=== PATIENT | male | born 1945 | race Caucasian/White ===

== ENCOUNTER 2018-02-14 10:23 | Outpatient (CLI) | payer MEDICARE, BC ==
--- NOTE | 2018-02-14 13:13 | XRAY Report ---
Procedure Date: 02/14/2018 Accession Number: [id number] / [id number] Procedure: XR - Chest 3 View X-Ray CPT Code: 25800 FULL RESULT: EXAM: Chest 3 View X-Ray DATE: 02/14/2018 12:21 PM CLINICAL HISTORY: CHEST PAIN TECHNIQUE: AP, lateral, apical lordotic views COMPARISON: 02/05/2016 FINDINGS: The heart and great vessels are unremarkable. The lungs are clear. No effusion or pneumothorax is present. IMPRESSION: Normal 3 view chest.
--- NOTE | 2018-02-14 13:13 | XRAY Report ---
Procedure Date: 02/14/2018 Accession Number: [id number] / [id number] Procedure: XR - Ribs 2 View RT CPT Code: FULL RESULT: EXAM: Ribs 2 View RT DATE: 02/14/2018 12:19 PM CLINICAL HISTORY: CHEST PAIN, FLANK PAIN COMPARISON: Chest x-ray of the same day TECHNIQUE: 2 views. FINDINGS: Bones: Normal. No fracture or bone lesion. Lungs: No focal opacities evident. No pneumothorax or pleural effusions. Mediastinum: Heart and cardiomediastinal contours are unremarkable. Other: None. IMPRESSION: Normal rib radiography. RADIA
== END 2018-02-14 10:24 | disposition home or self-care (01) ==
LOC: DI 10:23
PROVIDERS: ATTEND Internal Medicine
DX: R07.9 Chest pain, unspecified (principal); R10.9 Unspecified abdominal pain
CPT/HCPCS: 71047

== ENCOUNTER 2019-05-02 09:39 | Outpatient (CLI) | payer MEDICARE, BC ==
--- NOTE | 2019-05-02 12:07 | Ultrasound Report ---
Reason: THYROID CYST Procedure Date: 05/02/2019 Accession Number: [id number] / [id number] Procedure: US - Head or Neck Soft Tissue CPT Code: FULL RESULT: EXAM: THYROID ULTRASOUND EXAM DATE: 05/02/2019 10:11 AM. CLINICAL HISTORY: THYROID CYST. COMPARISON: US HEAD AND NECK SOFT TISSUE 09/29/2016 1:48 PM. TECHNIQUE: Real time sonographic imaging of the thyroid was performed by the respiratory technician. Multiple sales representative education courses static images were saved for review. FINDINGS: THYROID GLAND: Right Lobe: 4.6 x 1.1 x 1.3 cm, volume 3.4 cc. Normal background echotexture. Right Lobe Nodules: 0.6 x 0.4 x 0.4 cm spongiform midlobe nodule unchanged. Left Lobe: 4.3 x 1 x 1.3 cm, volume 2.9 cc. Normal background echotexture. Left Lobe Nodules: Previously seen superior cysts not definitely appreciated today. Isthmus: 0.4 cm AP. Isthmic Nodules: 2 mm cyst left isthmus stable LYMPH NODES: No pathologic adenopathy demonstrated in the central or lateral compartment. OTHER: None. IMPRESSION: No suspicious thyroid nodules are seen. No nodules meet criteria for FNA. Small gland with one 6 mm spongiform right nodule and a 2 mm left isthmic cyst persist. Management recommendations are based on 2015 [place] [employer] Management Guidelines for Adult Patients with Thyroid Nodules and Differentiated Thyroid Cancer. RADIA
== END 2019-05-02 09:40 | disposition home or self-care (01) ==
LOC: DI 09:39
PROVIDERS: ATTEND Internal Medicine
DX: E04.1 Nontoxic single thyroid nodule (principal)
CPT/HCPCS: 76536

== ENCOUNTER 2020-06-17 16:39 | Outpatient (CLI) | payer MEDICARE, BC | END 2020-06-17 16:40 | disposition home or self-care (01) | LOC: COV 16:39 | PROVIDERS: ATTEND Family Medicine | DX: R05 Cough (principal); R06.02 Shortness of breath; M79.10 Myalgia, unspecified site; R53.83 Other fatigue; R09.81 Nasal congestion; Z20.828 Contact with and (suspected) exposure to other viral communicable diseases ==

== ENCOUNTER 2021-09-22 10:21 | Outpatient (CLI) | payer MEDICARE, BC | END 2021-09-22 10:22 | disposition home or self-care (01) | LOC: LAB.S 10:21 | PROVIDERS: ATTEND Family Medicine | DX: C61 Malignant neoplasm of prostate (principal) | CPT/HCPCS: 36415; 84153 ==

== ENCOUNTER 2021-12-22 10:00 | Outpatient (CLI) | payer MEDICARE, BC | END 2021-12-22 10:01 | disposition home or self-care (01) | LOC: LAB.S 10:00 | PROVIDERS: ATTEND Nurse Practitioner Family | DX: C61 Malignant neoplasm of prostate (principal) | CPT/HCPCS: 36415; 84153 ==

== ENCOUNTER 2022-12-06 11:20 | Outpatient (CLI) | payer MEDICARE, BC | END 2022-12-06 11:21 | disposition home or self-care (01) | LOC: LAB.S 11:20 | PROVIDERS: ATTEND Radiology Radiation Oncology | DX: C61 Malignant neoplasm of prostate (principal) | CPT/HCPCS: 36415; 84153 ==

== ENCOUNTER 2023-02-05 13:22 | Outpatient (CLI) | payer MEDICARE, BC | END 2023-02-05 13:23 | disposition home or self-care (01) | LOC: RT 13:22 | PROVIDERS: ATTEND Internal Medicine Pulmonary Disease | DX: R06.09 Other forms of dyspnea (principal) | CPT/HCPCS: 94060; 94727; 94729 ==

== ENCOUNTER 2023-05-15 13:51 | Outpatient (CLI) | payer MEDICARE, BC ==
--- NOTE | 2023-05-15 16:08 | XRAY Report ---
PROCEDURE: Chest 2 View X-Ray INDICATIONS: FOCAL PNEUMONIA TECHNIQUE: 2 views of the chest were acquired. COMPARISON: None. FINDINGS: Surgical changes and devices: None. Lungs and pleura: No pleural effusions or pneumothorax. Lungs are clear. Mediastinum: Mediastinal contours appear normal. Heart size is normal. Bones and chest wall: No suspicious bony lesions. Overlying soft tissues appear unremarkable. IMPRESSION: No acute cardiopulmonary process. Reviewed by: Riya Martinez MD, PhD on 05/15/2023 4:07 PM PDT Approved by: Riya Martinez MD, PhD on 05/15/2023 4:07 PM PDT Station ID: [id number]
== END 2023-05-15 23:59 | disposition home or self-care (01) ==
LOC: DI.S 13:51
PROVIDERS: ATTEND Emergency Medicine
DX: J15.9 Unspecified bacterial pneumonia (principal)

== ENCOUNTER 2023-06-15 10:32 | Outpatient (CLI) | payer MEDICARE, BC ==
[2023-06-15 15:16] LABS: BASOPHILS % (AUTO) 0.7 %; HGB - HEMOGLOBIN 11.9 g/dL (14.0-18.0); LYMPHOCYTES % (AUTO) 16.9 %; MEAN CORPUSCULAR HEMOGLOBIN 32.5 pg (27.0-31.0); MEAN CORPUSCULAR HGB CONC 33.1 g/dL (32.0-36.0); MEAN CORPUSCULAR VOLUME 98.4 fL (80.0-94.0); MEAN PLATELET VOLUME 8.6 fL (7.4-11.4); MONOCYTES # (AUTO) 0.6 10^3/uL (0.0-1.0); MONOCYTES % (AUTO) 9.4 %; NEUTROPHILS # (AUTO) 4.5 10^3/uL (1.5-6.6); NEUTROPHILS % (AUTO) 72.8 %; PLT - PLATELET COUNT 220 10^3/uL (130-450); RED BLOOD COUNT 3.66 10^6/uL (4.70-6.10); RED CELL DISTRIBUTION WIDTH 13.1 % (12.0-15.0); WHITE BLOOD COUNT 6.2 x10^3/uL (4.8-10.8)
[2023-06-15 15:45] LABS: FERRITIN 18.3 ng/mL (23.9-336.2)
== END 2023-06-15 10:33 | disposition home or self-care (01) ==
LOC: LAB.S 10:32
PROVIDERS: ATTEND Family Medicine
DX: D64.9 Anemia, unspecified (principal)
CPT/HCPCS: 36415; 82607; 82728; 82746; 83540; 84466; 85025

== ENCOUNTER 2023-11-02 05:46 | Outpatient (CLI) | payer MEDICARE, BC | END 2023-11-02 23:59 | disposition critical access hospital (66) | LOC: EMS 05:46 | DX: R42 Dizziness and giddiness (principal); R11.0 Nausea; R07.89 Other chest pain; R10.812 Left upper quadrant abdominal tenderness; S30.1XXA Contusion of abdominal wall, initial encounter; S00.31XA Abrasion of nose, initial encounter; S00.81XA Abrasion of other part of head, initial encounter; S70.01XA Contusion of right hip, initial encounter; S40.021A Contusion of right upper arm, initial encounter; W18.39XA Other fall on same level, initial encounter | CPT/HCPCS: A0425; A0427 ==

== ENCOUNTER 2023-11-02 06:17 | Inpatient (IN) | payer MEDICARE, BC ==
[2023-11-02] MEDS ORDERED: iohexoL-300 100 ML VIAL ONE (06:35)
[2023-11-02 06:37] LABS: BASOPHILS % (AUTO) 0.4 %; HCT - HEMATOCRIT 31.7 % (42.0-52.0); HGB - HEMOGLOBIN 11.6 g/dL (14.0-18.0); LYMPHOCYTES # (AUTO) 0.4 10^3/uL (1.5-3.5); LYMPHOCYTES % (AUTO) 8.2 %; MEAN CORPUSCULAR HEMOGLOBIN 33.5 pg (27.0-31.0); MEAN CORPUSCULAR HGB CONC 36.6 g/dL (32.0-36.0); MEAN CORPUSCULAR VOLUME 91.6 fL (80.0-94.0); MEAN PLATELET VOLUME 8.1 fL (7.4-11.4); MONOCYTES # (AUTO) 0.7 10^3/uL (0.0-1.0); MONOCYTES % (AUTO) 12.1 %; NEUTROPHILS # (AUTO) 4.2 10^3/uL (1.5-6.6); NEUTROPHILS % (AUTO) 78.9 %; PLT - PLATELET COUNT 178 10^3/uL (130-450); RED BLOOD COUNT 3.46 10^6/uL (4.70-6.10); RED CELL DISTRIBUTION WIDTH 12.7 % (12.0-15.0); WHITE BLOOD COUNT 5.4 x10^3/uL (4.8-10.8)
[2023-11-02] MEDS: MECLIZINE 12.5 MG TABLET PO STA (06:43)
[2023-11-02] MEDS: TETANUS/DIPHTHERIA/PERTUSSIS 0.5 ML SYRINGE IM ONE (06:44)
[2023-11-02] MEDS: SODIUM CHLORIDE 0.9% 1,000 ML IV STA (06:46)
[2023-11-02 06:50] LABS: ALBUMIN 3.8 g/dL (3.2-5.5); ALBUMIN/GLOBULIN RATIO 1.5 (1.0-2.2); ALKALINE PHOSPHATASE 92 IU/L (42-121); ALT ALANINE AMINOTRANSFERASE 15 IU/L (10-60); AST ASPARTATE AMINOTRANSFERASE 24 IU/L (10-42); BILIRUBIN,TOTAL 0.7 mg/dL (0.2-1.0); BUN - BLOOD UREA NITROGEN 17 mg/dL (6-20); CARBON DIOXIDE - CO2 26 mmol/L (21-32); CHLORIDE 90 mmol/L (101-111); CREATININE 0.8 mg/dL (0.6-1.3); GFR - MDRD 94 (>89); GLUCOSE 113 mg/dL (74-104); POTASSIUM 3.6 mmol/L (3.5-4.5); SODIUM 122 mmol/L (135-145); TOTAL PROTEIN 6.4 g/dL (6.4-8.9)
--- NOTE | 2023-11-02 06:52 | ED Physician Documentation ---
History of Present Illness - Stated complaint Stated Complaint: N/V/DIZZY - Chief complaint Chief Complaint: General - History obtained from History obtained from: Patient - Additonal information Additional information: 78yM presents bibems with nausea, severe headache today and vertiginous sensation X 4 days with fall yesterday. +HT and facial injury, no LOC. denies blood thinners. also with large ecchymosis and pain to R lower chest/upper abdomen. patient states he has been vomiting yellowish substance. denies fever, neck pain, back pain, diarrhea. patient has had issues with vertigo in the past and normally takes ear drops or ativan for it but they haven't been working. EMS provided 4mg IV zofran en route with improvement in nausea. PD PAST MEDICAL HISTORY - Past Medical History Cardiovascular: High cholesterol, Coronary artery disease Endocrine/Autoimmune: HyPOthyroidism : Benign prostate hypertrophy, Indwelling catheter HEENT: Chronic hearing loss Psych: Depression Musculoskeletal: Osteoarthritis - Past Surgical History Past Surgical History: Yes General: Colonoscopy, EGD Ortho: Hip replacement - Present Medications Home Medications: Ambulatory Orders Medication Instructions Recorded Confirmed Aspirin 325 mg PO DAILY 02/05/16 02/06/16 Atorvastatin [Lipitor] 10 mg PO QPM 02/05/16 02/06/16 Docusate Sodium 250Mg Capsule 250 mg PO BID 02/05/16 02/06/16 [Colace 250Mg Capsule] Finasteride [Proscar] 5 mg PO DAILY 02/05/16 02/06/16 LORazepam [Ativan] 0.5 mg PO BID PRN 02/05/16 02/06/16 Levothyroxine [Synthroid] 100 mcg PO DAILY 02/05/16 02/06/16 Mirtazapine 45 mg PO QPM 02/05/16 02/06/16 Omeprazole [PriLOSEC] 20 mg PO BID 02/05/16 02/06/16 Sertraline [Zoloft] 25 mg PO DAILY 02/05/16 02/06/16 Sulfamethoxazole/Trimethoprim 1 tab PO BID 02/05/16 02/06/16 [Bactrim 400-80 mg Tablet] oxyCODONE [Roxicodone] 5 - 10 mg PO QID PRN 02/05/16 02/06/16 - Allergies Allergies/Adverse Reactions: Allergies Allergy/AdvReac Type Severity Reaction Status Date / Time No Known Drug Allergies Allergy Verified 11/02/23 06:29 - Social History Does the pt smoke?: No Smoking Status: Never smoker Does the pt drink ETOH?: No Does the pt have substance abuse?: Yes PD ED PE NORMAL - Vitals Vital signs reviewed: Yes - General General: Alert and oriented X 3, No acute distress, Well developed/nourished - HEENT HEENT: Atraumatic, PERRL, EOMI, Moist mucous membranes, Pharynx benign, Other (abrasions to bridge of nose and upper face. no nasal septal hematoma) - Neck Neck: Supple, no meningeal sign, No bony TTP - Cardiac Cardiac: RRR - Respiratory Respiratory: No respiratory distress, Clear bilaterally - Abdomen Abdomen: Non tender, Non distended - Derm Derm: Other (large ecchymosis to R flank and R lower lateral chest area) - Extremities Extremities: No deformity - Neuro Neuro: Alert and oriented X 3, window glazier helper 2-12 intact, No motor deficit, No sensory deficit, Normal speech Eye Opening: Spontaneous Motor: Obeys Commands Verbal: Oriented GCS Score: 15 Results - Vitals Vitals: Vital Signs - 24 hr 11/02/23 06:26 Temperature 36.2 C L Heart Rate 73 Respiratory 18 Rate Blood Pressure 146/78 H O2 Saturation 95 Oxygen O2 Source Room air PD Medical Decision Making - ED course ED course: 78yM p/w n/v, LOWRY, and vertigo with symptom onset 4 days ago. possible this is ce ntral versus peripheral in origin therefore CT noncontrast of head and CTA head/neck ordered. IV ativan was provided for vertigo. patient declined meclizine. oral tylenol provided for headache. CT chest/a/p ordered to evaluate for rib fractures or solid organ injury from his fall yesterday in the setting of R flank and R lower lateral chest wall ecchymosis. cbc, abdominal panel, ivf, also ordered. plan to endorse to incoming daytime ED MD at 7am shift change awaiting these results and reevaluation. Departure - Departure Clinical Impression: Vertigo, Headache, Nausea and vomiting, Fall
[2023-11-02 06:55] LABS: LIPASE < 10 U/L (11-82)
[2023-11-02] MEDS: LORazepam 2 MG/ML VIAL IVP STA (06:57)
[2023-11-02] MEDS: ACETAMINOPHEN 325 MG TABLET PO STA (06:57)
[2023-11-02 07:48] LABS: BILIRUBIN,URINE NEGATIVE (NEGATIVE); GLUCOSE, URINE (UA) NEGATIVE (NEGATIVE); KETONES,URINE (UA) NEGATIVE (NEGATIVE); LEUKOCYTE ESTERASE, URINE NEGATIVE (NEGATIVE); NITRITE,URINE NEGATIVE (NEGATIVE); OCCULT BLOOD,URINE NEGATIVE (NEGATIVE); PH,URINE 6.5 PH (5.0-7.5); PROTEIN,URINE NEGATIVE (NEGATIVE); UROBILINOGEN,URINE 0.2 (NORMAL) E.U./dL (NORMAL)
[2023-11-02 07:49] LABS: CLARITY,URINE CLEAR (CLEAR)
--- NOTE | 2023-11-02 08:35 | CT Report ---
PROCEDURE: Abdomen/Pelvis W INDICATIONS: Abdominal trauma, blunt CONTRAST: 100ml omni 300 TECHNIQUE: After the administration of intravenous contrast, a CT scan of the abdomen and pelvis was performed. Images were recorded and evaluated at appropriate window settings. Reformats: coronal and sagittal. F or radiation dose reduction, the following was used: automated exposure control, adjustment of mA and /or kV according to patient size. COMPARISON: None. FINDINGS: Image quality: Diagnostic. Lower chest: Large hiatal hernia. Liver: No solid mass. Gallbladder and biliary tree: No radiopaque stones or wall thickening. No biliary dilation. Spleen: No splenomegaly. Pancreas: No pancreatic ductal dilation. Adrenals: No adrenal nodule. Kidneys and ureters: No hydronephrosis. No renal cystic lesion which requires follow up. No solid mas s. Stomach, bowel and peritoneum: No bowel distension. No pathologic free fluid. Diverticulosis without evidence of diverticulitis. Lymph nodes: No central or retroperitoneal adenopathy. Vessels: No infrarenal aortic aneurysm. PELVIS Reproductive organs: Prostate fiducial markers. Bladder: No abnormal wall thickening, accounting for underdistention. Pelvic lymph nodes: No pelvic adenopathy by size criteria. Bones: Minimally displaced right posterior 10th and 11th rib fractures. Right total hip arthroplasty. Other: No significant ventral or inguinal hernia. IMPRESSION: Minimally displaced right posterior 10th and 11th rib fractures. No pneumothorax or solid organ injur y. Other chronic findings as above. Reviewed by: Adin Casetllano MD on 11/02/2023 8:33 AM PDT Approved by: Adin Castellano MD on 11/02/2023 8:33 AM PDT Station ID: [id number]
--- NOTE | 2023-11-02 08:38 | CT Report ---
PROCEDURE: Chest W INDICATIONS: Chest trauma, blunt, low energy CONTRAST: 100ml omni 300 TECHNIQUE: After the administration of intravenous contrast, a CT scan of the chest was performed. Images were recorded and evaluated at appropriate window settings. Reformats: axial MIP of the chest, coronal and sagittal. For radiation dose reduction, the following was used: automated exposure control, adjustme nt of mA and/or kV according to patient size. COMPARISON: None. FINDINGS: Image quality: Diagnostic. Chest wall and lower neck: No thyroid nodule which requires sonographic follow up. No axillary or sup raclavicular adenopathy by size. Lungs and pleura: No consolidation. No pleural effusions. No pneumothorax. No suspicious pulmonary n odules which require follow up. Mediastinum: Heart size is normal. No pericardial effusion. No large vessel abnormality. No mediastin al adenopathy by size criteria. Gastric pull-through with esophagectomy. Bones: Mildly displaced right posterior 10th and 11th rib fractures. Questionable nondisplaced right posterior lateral ninth rib fracture. Upper Abdomen: Unremarkable. IMPRESSION: Mildly displaced right posterior 10th and 11th rib fractures. Questionable nondisplaced right posteri or lateral ninth rib fracture. No pneumothorax or effusion. Reviewed by: Adin Castellano MD on 11/02/2023 8:37 AM PDT Approved by: Adin Castellano MD on 11/02/2023 8:37 AM PDT Station ID: [id number]
--- NOTE | 2023-11-02 08:42 | CT Report ---
PROCEDURE: Head WO INDICATIONS: Head trauma, mod-severe TECHNIQUE: Noncontrast 4.5 mm thick angled axial sections acquired from the foramen magnum to the vertex. For r adiation dose reduction, the following was used: automated exposure control, adjustment of mA and/or kV according to patient size. COMPARISON: None. FINDINGS: Image quality: Excellent. CSF spaces: Basal cisterns are patent. No extra-axial fluid collections. Ventricles are normal in size and shape. Brain: No midline shift. No intracranial masses or hemorrhage. Hansen-white matter interface is norm al. Leukoaraiosis, commonly caused by chronic small vessel ischemic disease. Age-related volume loss . Skull and face: Calvarium and visualized facial bones are intact, without suspicious lesions. Sinuses: Visualized sinuses and mastoids are clear. IMPRESSION: No acute intracranial pathology. Reviewed by: Adin Castellano MD on 11/02/2023 8:41 AM PDT Approved by: Adin Castellano MD on 11/02/2023 8:41 AM PDT Station ID: [id number]
--- NOTE | 2023-11-02 08:43 | CT Report ---
PROCEDURE: Maxillofacial WO INDICATIONS: facial injury s/p fall TECHNIQUE: Noncontrast 1.5 mm thick axial images acquired from the mandible through the frontal sinuses, with co bc and sagittal reformatting. For radiation dose reduction, the following was used: automated ex posure control, adjustment of mA and/or kV according to patient size. COMPARISON: None. FINDINGS: Image quality: Excellent. Bones and teeth: Orbital hopkins are intact. Sinus hopkins show no fracture or deformity. Nasal bones and septum are intact. Visualized portions of the mandible demonstrate no fractures or subluxation. Zygomatic arches are intact. Pterygoid plates are intact. Visualized portions of the skull base an d auditory canals are intact. Sinuses: Paranasal sinuses are aerated, without fluid levels, mucosal thickening, or mucoceles. Mas toid air cells are aerated. Soft tissues: No edema, masses, or fluid collections. No enlarged lymph nodes. No soft tissue lace rations or debris. Vascular: Visualized vascular structures appear normal in the absence of contrast. Bony vascular fo ramina and canals are intact. IMPRESSION: No displaced fracture or air-fluid level to suggest hematoma. Reviewed by: Adin Castellano MD on 11/02/2023 8:42 AM PDT Approved by: Adin Castellano MD on 11/02/2023 8:42 AM PDT Station ID: [id number]
[2023-11-02] MEDS: ONDANSETRON 4 MG/2 ML VIAL IVP STA (08:44)
[2023-11-02] MEDS: MORPHINE 2 MG/ML CARPUJECT IVP STA (08:46)
--- NOTE | 2023-11-02 08:46 | CT Report ---
PROCEDURE: Angio Head/Neck INDICATIONS: vertigo TECHNIQUE: After the administration of intravenous contrast, 1 mm thick sections acquired from the aortic arch t hrough the [place]. 3-dimensional kmyzzzm-snbccknvu-erkalnynmp (MIP) and/or volume renderin g reformats were acquired of the central intracranial vasculature and neck separately. For radiation dose reduction, the following was used: automated exposure control, adjustment of mA and/or kV acco rding to patient size. CONTRAST: 100ml omni 300 COMPARISON: None. FINDINGS: Image quality: Diagnostic. HEAD CT: CSF Spaces: Basal cisterns are patent. No extra-axial fluid collections. Ventricles are normal in size and shape. Brain: No significant abnormality is seen for scanning technique. Skull and face: Calvarium and visualized facial bones appear intact, without suspicious lesions. Sinuses: Visualized sinuses and mastoids are clear. HEAD CT ANGIOGRAPHY: Anterior circulation: Intracranial internal carotid arteries are normal in size and flow. The flow within the paired anterior cerebral arteries is normal and symmetric. The flow within the middle cer ebral arteries is normal and symmetric. The anterior communicating artery is seen. No aneurysms are seen. Posterior circulation: Visualized portions of the vertebral arteries demonstrate normal caliber, and join to form a normal appearing basilar artery. Flow within the posterior cerebral arteries is norm al and symmetric. No aneurysms are seen. NECK CT ANGIOGRAPHY: Carotid system: The great vessels demonstrate a conventional anatomy as they arise from the aortic a rch. The origins of the common carotid arteries appear patent. The common carotid arteries demonstr ate normal caliber and courses. The bifurcation regions are both widely patent. The internal caroti d arteries demonstrate normal calibers and courses. Posterior circulation: The origins of the vertebral arteries both appear widely patent. The more phillip perior extracranial portions of both vertebral arteries also demonstrate normal courses and calibers. They join to form a normal appearing basilar artery. Soft tissues: Visualized neck soft tissues demonstrate no suspicious abnormalities. Bones: No suspicious bony lesions. Visualized cervical spine appears normally aligned. IMPRESSION: No significant intracranial arterial abnormality is seen. No significant abnormality is seen within the arteries of the neck. The estimate of stenosis included in the report of the imaging study was calculated using the NASCET method Reviewed by: Adin Castellano MD on 11/02/2023 8:44 AM PDT Approved by: Adin Castellano MD on 11/02/2023 8:44 AM PDT Station ID: [id number]
--- NOTE | 2023-11-02 08:58 | ED Physician Documentation ---
ED Addendum - Addendum Addendum: 11/02/23 Patient care assumed at shift change from Dr. Cramer. Patient with vertigo had an episode yesterday causing a fall. Sustained multiple abrasions to the face as well as contusion to the right lower chest wall and flank. Not on a blood thinner. On review of imaging patient has rib fractures of right posterior 10th and 11th ribs with possible involvement of the right ninth rib. On review of his labs significant for sodium of 122. Patient states he has been drinking mo re water in the last 3 weeks due to to constipation and because of history of vertigo was told to avoid salt. He is not on any diuretics. Does not take a blood thinner. Prior labs are from 2016 but indicate normal sodium levels at that time. 0856 -Discussed with admitting hospitalist, Dr. Swanson who will admit the patient for further management of hyponatremia and rib fractures. He has also requested surgery consultation for help in managing the rib fractures. I did also speak with Dr. Hdez who will consult on the patient. Departure - Departure Disposition: 66 [facility] DC/Xfer Clinical Impression: Vertigo, Headache, Nausea and vomiting, Hyponatremia Fall Qualifiers: Encounter type: initial encounter Qualified Code(s): W19.XXXA - Unspecified fall, initial encounter Ribs, multiple fractures Qualifiers: Encounter type: initial encounter Fracture type: closed Laterality: right Qualified Code(s): S22.41XA - Multiple fractures of ribs, right side, initial encounter for closed fracture Condition: Good Forms: PCP List
[2023-11-02] MEDS ORDERED: ONDANSETRON ODT 4 MG TABLET TL PRN (09:03)
[2023-11-02] MEDS ORDERED: IBUPROFEN 600 MG TABLET PO PRN (09:03)
[2023-11-02] MEDS ORDERED: ACETAMINOPHEN 325 MG TABLET PO PRN (09:03)
[2023-11-02] MEDS ORDERED: oxyCODONE 5 MG TABLET PO PRN (09:03)
[2023-11-02] MEDS ORDERED: ONDANSETRON 4 MG/2 ML VIAL IVP PRN (09:03)
[2023-11-02] MEDS ORDERED: SODIUM CHLORIDE FLUSH 0.9% 10 ML SYRINGE IVP PRN (09:03)
[2023-11-02] MEDS ORDERED: HYDROmorphone 0.5 MG/0.5 ML SYRINGE IVP PRN (09:03)
[2023-11-02] MEDS: LIDOCAINE PATCH 5% TOP STA (09:10)
[2023-11-02] MEDS: SODIUM CHLORIDE 0.9% 1,000 ML IV SCH (09:18)
--- NOTE | 2023-11-02 09:29 | CONSULTATION NOTE ---
Surgery Consult - Admit Date Hospital Admission Date: 11/02/23 - Home Meds/Allergies Home Medications: Patient History Medication Instructions Recorded Confirmed Aspirin 325 mg PO DAILY 02/05/16 02/06/16 Atorvastatin [Lipitor] 10 mg PO QPM 02/05/16 02/06/16 Docusate Sodium 250Mg Capsule 250 mg PO BID 02/05/16 02/06/16 [Colace 250Mg Capsule] Finasteride [Proscar] 5 mg PO DAILY 02/05/16 02/06/16 LORazepam [Ativan] 0.5 mg PO BID PRN 02/05/16 02/06/16 Levothyroxine [Synthroid] 100 mcg PO DAILY 02/05/16 02/06/16 Mirtazapine 45 mg PO QPM 02/05/16 02/06/16 Omeprazole [PriLOSEC] 20 mg PO BID 02/05/16 02/06/16 Sertraline [Zoloft] 25 mg PO DAILY 02/05/16 02/06/16 Sulfamethoxazole/Trimethoprim 1 tab PO BID 02/05/16 02/06/16 [Bactrim 400-80 mg Tablet] oxyCODONE [Roxicodone] 5 - 10 mg PO QID PRN 02/05/16 02/06/16 Allergies/Adverse Reactions: Allergies Allergy/AdvReac Type Severity Reaction Status Date / Time No Known Drug Allergies Allergy Verified 11/02/23 06:29 - Vital Signs Vital Signs: Last Vital Signs Temp 97.2 F L 11/02/23 06:26 Pulse 69 11/02/23 09:22 Resp 19 11/02/23 09:22 BP 170/98 H 11/02/23 09:22 Pulse Ox 97 11/02/23 09:22 O2 Flow Rate Intake & Output: Intake & Output 10/30/23 10/31/23 11/01/23 11/02/23 23:59 23:59 23:59 23:59 Intake Total 1000 Balance 1000 - Lab Results Result Diagrams: 11/02/23 06:32 11/02/23 06:32 - Consultation Note Consultation Note: General Surgery Consultation Note - (Rib Fracture Protocol) Assessment: 1) Non-displaced fractures right ribs 9,10,11 without hemopneumothorax or pulmonary contusion Recommendation: 1) Lidocaine patch right chest wall. Change q 12 hrs 2) Oral scheduled Acetaminophen, Ibuprofen and PPI; PRN Oxycodone 3) IV Dilaudid as needed 4) IS 5-6 x per hour 5) Supplemental oxygen as needed 6) Dangle at bedside/ambulate 4-6 x a day. May ambulate with assistance once vertigo has resolved 7) Consider epidural catheter (consult anesthesia) if above analgesic measures fail to provide enough relief for adequate pulmonary hygiene 8) Colace; MOM/Miralax as needed for constipation 9) Surgery will follow <><><><><> Reason for Consultation I am asked to see Huey by Dr. Swanson for evaluation and management of right posterior rib fractures HPI Huey is a 78 year old male who has Meniere's disease. Upon entering his home yesterday afternoon, he became dizzy and fell to the ground striking his right chest on a plant pot. He had immediate pain in the area and this kept him awake all evening.. He suffered with vertigo and emesis during the evening and came to the ED today for evaluation. He was found to have significant hyponatremia a nd on image evaluation, the right posterior 9th, 10th, and 11th ribs were seen to be fractured but non-displaced. He was started on IV morphine for his rib pain and this has resolved the discomfort. He has no SOB. This patient will be admitted to the Adult Medical Hospitalist Service for treatment of his hyponatremia and the General Surgery Service was asked to assist in his evaluation and management per Hospital Acute Rib Fracture Policy. Past Medical History Meniere's disease Esophageal cancer, s/p esophagectomy Hypothyroidism Hypercholesterolemia Depression (related to esophageal surgery) Constipation Past Surgical History Esophagectomy 2007 Mesh repair of abdominal wall hernia Inguinal hernia repair Fibular fracture repair Right hip surgery Social History [place] alone [place] the [place]; Does not smoke cigarettes; Used to drink alcohol ROS Pertinent positives Restless legs Vertigo Right chest discomfort All other reviewed systems negative Physical Examination VSS; Afebrile BMI: 23 GENERAL APPEARANCE: Normal development, normal body habitus, normal grooming PSYCHIATRIC: AAO; Pleasant, comfortable, cooperative, in NAD EYES: Pupils constricted and equal, round and reactive to light, sclera anicteric EARS, NOSE, MOUTH, THROAT: Hearing normal, Oral mucous membranes moist and without lesions; Teeth in good repair NECK: No crepitus, lymphadenopathy, or thyromegaly LUNGS: Clear to auscultation without wheezing; No use of accessory muscles to breathe; CHEST WALL: Minimal tenderness right posterolateral chest wall; no ecchymosis; no flail or rib movement HEART: NSR ABD: Soft, non-tender, midline surgical scar without herniation SKIN: Anicteric; No rashes; Several abrasions about right face and scalp Labs See above Imaging CT Chest/Abd - read as normal except for non-displaced right 9,10,11 rib fractures; No hemopneumothorax CTA Head - normal All images were personally reviewed by me for this encounter - JOSH. Jose Maria Hdez MD, [facility] General Surgery [phone]
[2023-11-02] MEDS ORDERED: polyethylene glycoL 3350 17 GM PACKET PO PRN (10:30)
[2023-11-02] MEDS: iohexoL-300 100 ML VIAL IVP ONE (10:58)
--- NOTE | 2023-11-02 13:33 | PHARMACY PROGRESS NOTE ---
- Best Possible Medication History Admit Date and Time: 11/02/23 0903 Processed by: Pharmacy Medications reviewed in ED?: No Medication History completed: Yes Patient Interview: Completed Secondary Source(s): Insurance records (PATIENT HAS RX FOR BACLOFEN AND AMBIEN BUT DOES NOT TAKE. UNSURE OF SYNTHROID DOSE AND OK ON HOLDING OFF ON RESTARTING IT. PT REQUESTING BETAHISTINE POM.) As the person ultimately responsible for medication therapy, providers are able to order a medication from an existing home medication list in [facility] via the "Reconcile Routine" prior to Confirmation of that medication by technical support internship. Such practice is discouraged except when the physician, in their clinical judgment, deems that a medical need exists for a medication without regard to previous use.
[2023-11-02] MEDS ORDERED: NON FORMULARY MED (Omeprazole [Prilosec] 20 MG Capsule) PO SCH (14:00)
--- NOTE | 2023-11-02 14:36 | HISTORY & PHYSICAL EXAMINATION ---
Chief Complaint - Chief Complaint Chief Complaint: Fall, vertigo History of Present Illness - Admitted From Admitted From:: ED - History Obtained From Records Reviewed: Yes History obtained from: Patient Exam Limitations: None - History of Present Illness HPI Comment/Other: Patient is a 78-year-old male with a PMHx of prostate cancer in remission, Mnire's disease, Hypothyroidism, CAD who presented to the ED after sustaining a fall at home after having a flareup of his Mnire's disease in the form of vertigo. He reports that he was walking to his mailbox and became dizzy and fell hitting his face on a flowerpot suffering facial injuries as well as an injury to his right lower chest. After this episode he laid in bed where he was extremely nauseated and continued to have vertigo. He eventually presented to the ED the following day. In the ED a CT head was performed which not reveal any evidence of fractures. Imaging of his chest did however reveal mildly displaced posterior 10th and 11th rib fractures and a questionable nondisplaced right lateral ninth rib fracture. Patient was also noted to be hyponatremic with a sodium of 122. He reports he is on beta histamine and hydrochlorothiazide as prescribed by his neurologist Dr. Rio Keen who he follows for his Mnire's disease. During my evaluation his symptoms had improved. He was Nauseated and was tolerating a diet. He was eval by surgery who did not recommend any surgical intervention. Patient reported to me that he is a full code. He does have a follow-up scheduled with his neurologist for steroid injections in his inner ear. History - Past Medical History Cardiovascular: reports: High cholesterol, Coronary artery disease Neuro: reports: Other Endocrine/Autoimmune: reports: HyPOthyroidism : reports: Benign prostate hypertrophy HEENT: reports: Chronic hearing loss Psych: reports: Depression Musculoskeletal: reports: Osteoarthritis Derm: reports: Psoriasis MRSA Hx?: No - Past Surgical History General: reports: Colonoscopy, EGD, Other Ortho: reports: Hip replacement, Spine surgery Meds/Allgy - Home Medications Home Medications: Ambulatory Orders Medication Instructions Recorded Confirmed Levothyroxine [Synthroid] See Rx Instructions .ROUTE .COMPLEX 02/05/16 02/06/16 Mirtazapine 45 mg PO QPM 02/05/16 11/02/23 Omeprazole [PriLOSEC] 20 mg PO BID 02/05/16 11/02/23 Sertraline [Zoloft] 12.5 mg PO DAILY 02/05/16 11/02/23 Betahistine 8 mg PO TID 11/02/23 11/02/23 Rosuvastatin Calcium [Crestor] 10 mg PO QPM 11/02/23 11/02/23 Tamsulosin [Flomax] 0.8 mg PO DAILY 11/02/23 11/02/23 - Allergies Allergies/Adverse Reactions: Allergies Allergy/AdvReac Type Severity Reaction Status Date / Time No Known Drug Allergies Allergy Verified 11/02/23 06:29 Review of Systems - Constitutional Constitutional: denies: Fatigue, Fever, Chills, Malaise - Cardiovascular Cariovascular: denies: Irregular heart rate, Palpitations, Chest pain, Syncope - Respiratory Respiratory: denies: SOB at rest, SOB with exertion - Gastrointestinal Gastrointestinal: reports: Nausea, Vomiting. denies: Abdominal pain - Neurological Neurological: reports: Dizziness, Incoordination. denies: General weakness, Focal weakness, Headache - All Other Systems All Other Systems: reports: Reviewed and negative Prior Level of Functionality: Independent in all ADLs. Exam - Vital Signs Reviewed Vital Signs: Yes Vital Signs: Vital Signs x48h Pulse Resp BP Pulse Ox 11/02/23 09:22 69 19 170/98 H 97 11/02/23 08:21 69 13 141/80 H 98 - Physical Exam General Appearance: positive: No acute distress, Alert Respiratory: positive: Chest non-tender, Breath sounds nml. negative: Wheezes Cardiovascular: positive: Regular rate & rhythm, No murmur, No gallop Abdomen: positive: No distention. negative: Tenderness Skin: positive: Color nml Extremities: positive: Non-tender, No pedal edema Neurologic/Psychiatric: positive: Oriented x3, CN's nml (2-12) Conclusion/Plan - Problem List (1) Fall Conclusion/Plan: --Fall occurred secondary to an episode of vertigo. He currently does not have significant symptoms. --Rib fractures noted on CT scan of chest. No other fractures. General surgery was consulted and recommended pain control and incentive spirometry. Qualifiers: Encounter type: initial encounter Qualified Code(s): W19.XXXA - Unspecified fall, initial encounter (2) Hyponatremia Conclusion/Plan: --Exact etiology is unclear but may be related to thiazide use as well as SIADH from sertraline. --Will start him on IV normal saline. Will check sodium every 8 hours. --Urine sodium and urine osmolality pending. --Holding thiazide and sertraline. (3) Ribs, multiple fractures Conclusion/Plan: --Right 10th and 11th rib fractures. Questionable 9th rib fracture. --General surgery recommending pain control. Qualifiers: Encounter type: initial encounter Fracture type: closed Laterality: right Qualified Code(s): S22.41XA - Multiple fractures of ribs, right side, initial encounter for closed fracture (4) Vertigo Conclusion/Plan: --Patient has a history of Mnire's disease. He will follow-up with Dr. Kade Keen who is his neurologist for otic steroid injections. --He was prescribed thiazide and beta histamine for his symptoms. Patient states he has not been taking his medications for very long. Will hold thiazide due to concern for precipitation of hyponatremia. (5) Hypothyroidism Conclusion/Plan: --He is not currently on any thyroid supplementation. Will order a TSH in a.m. (6) Prostate cancer Conclusion/Plan: --Underwent radiation treatment. His last PSA is undetectable. Continue outpatient surveillance. - Lab Results Fish Bones: 11/02/23 06:32 11/02/23 06:32 - Diagnostic Imaging Results Diagnostic Imaging Results: positive: Final report reviewed
[2023-11-02] MEDS: LIDOCAINE PATCH 5% TOP SCH (14:37)
[2023-11-02] MEDS: DOCUSATE SODIUM 100 MG CAPSULE PO SCH (14:49)
[2023-11-02] MEDS: IBUPROFEN 600 MG TABLET PO SCH (14:50)
[2023-11-02] MEDS: PANTOPRAZOLE 40 MG TABLET PO SCH (14:50)
[2023-11-02] MEDS: HYDROmorphone 0.5 MG/0.5 ML SYRINGE IVP PRN (14:56)
[2023-11-02] MEDS: BETAHISTINE PO SCH (15:00)
[2023-11-02] MEDS: ACETAMINOPHEN 325 MG TABLET PO SCH (15:01)
[2023-11-02] MEDS: SODIUM CHLORIDE FLUSH 0.9% 10 ML SYRINGE IVP SCH (16:59)
[2023-11-02] MEDS ORDERED: NON FORMULARY MED (Rosuvastatin Calcium [Crestor] 10 MG Tablet) PO SCH (21:00)
[2023-11-02] MEDS: MIRTAZAPINE 15 MG TABLET PO SCH (21:01)
[2023-11-02] MEDS: ATORVASTATIN 10 MG TABLET PO SCH (21:06)
[2023-11-03] MEDS: oxyCODONE 5 MG TABLET PO PRN (04:01)
[2023-11-03 06:24] LABS: BASOPHILS % (AUTO) 0.6 %; EOSINOPHILS % (AUTO) 0.3 %; HCT - HEMATOCRIT 30.5 % (42.0-52.0); HGB - HEMOGLOBIN 10.3 g/dL (14.0-18.0); LYMPHOCYTES # (AUTO) 0.6 10^3/uL (1.5-3.5); LYMPHOCYTES % (AUTO) 18.3 %; MEAN CORPUSCULAR HEMOGLOBIN 32.4 pg (27.0-31.0); MEAN CORPUSCULAR HGB CONC 33.8 g/dL (32.0-36.0); MEAN CORPUSCULAR VOLUME 95.9 fL (80.0-94.0); MEAN PLATELET VOLUME 7.9 fL (7.4-11.4); MONOCYTES # (AUTO) 0.5 10^3/uL (0.0-1.0); MONOCYTES % (AUTO) 14.6 %; NEUTROPHILS # (AUTO) 2.3 10^3/uL (1.5-6.6); NEUTROPHILS % (AUTO) 65.9 %; PLT - PLATELET COUNT 137 10^3/uL (130-450); RED BLOOD COUNT 3.18 10^6/uL (4.70-6.10); RED CELL DISTRIBUTION WIDTH 13.1 % (12.0-15.0); WHITE BLOOD COUNT 3.5 x10^3/uL (4.8-10.8)
[2023-11-03 06:41] LABS: CALCIUM 8.8 mg/dL (8.5-10.3); CREATININE 0.8 mg/dL (0.6-1.3); POTASSIUM 3.5 mmol/L (3.5-4.5)
[2023-11-03] MEDS: SODIUM CHLORIDE 0.9% 1,000 ML IV SCH ×2 (07:59→08:51)
--- NOTE | 2023-11-03 08:16 | PROVIDER PROGRESS NOTE ---
Progress Note General Surgery Progress Note S: Feels good. No vertigo episodes since admission. Mild right chest wall discomfort with movement but well controlled with oral medication O: VSS, afeb; AAO; In NAD; Lungs clear; Heart NSR; Right chest wall with mild tenderness to palpation posterior aspect. No ecchymosis. Able to reach 2,000 on IS without chest pain. Na slowly returning to normal. H&H stable. A: GLF with fracture of ribs 9,10,11 (non-displaced) without evidence of pulmonary contusion or hemopneumothorax. Recovering well. R: No need for lidocaine patch at home. Continue scheduled Tylenol and Ibuprof en for 2 days, then prn and prn Oxycodone at home; Continue to use IS for next 2-3 days. My use heating pad to right posterior ribs for comfort as needed. The General Surgery Service will sign off of this patient today. If you have any questions or would like us to continue to follow the patient, please do not hesitate to contact me. Vishal Hdez MD, [facility] General Surgery Service [phone]
[2023-11-03] MEDS: ENOXAPARIN 40 MG/0.4 ML SYRINGE SUBQ SCH (08:30)
[2023-11-03] MEDS: SODIUM CHLORIDE 1 GM TABLET PO SCH (08:31)
--- NOTE | 2023-11-03 09:13 | Discharge Plan ---
Discharge Plan Problem Reviewed?: Yes Disposition: Home, Self Care Condition: Good Diet: Regular Activity Restrictions: No Restrictions Plan of Treatment: Please hold your thiazide. No Smoking: If you smoke, Please STOP! Call for help. Follow-up with: ANNMARIE HOWELL DO [Physician No Access] -
--- NOTE | 2023-11-03 09:16 | DISCHARGE SUMMARY ---
Discharge Summary Admit Date: 11/02/23 Discharge Date: 11/03/23 Discharging Provider: Sondra Kothari Primary Care Provider: Ozzy Langford Code Status: Attempt Resuscitation Condition at Discharge: Good Discharge Disposition: 01 Home, Self Care - HPI History of Present Illness: Patient is a 78-year-old male with a PMHx of prostate cancer in remission, Mni re's disease, Hypothyroidism, CAD who presented to the ED after sustaining a fall at home after having a flareup of his Mnire's disease in the form of vertigo. He reports that he was walking to his mailbox and became dizzy and fell hitting his face on a flowerpot suffering facial injuries as well as an injury to his right lower chest. After this episode he laid in bed where he was extremely nauseated and continued to have vertigo. He eventually presented to the ED the following day. In the ED a CT head was performed which not reveal any evidence of fractures. Imaging of his chest did however reveal mildly displaced posterior 10th and 11th rib fractures and a questionable nondisplaced right lateral ninth rib fracture. Patient was also noted to be hyponatremic with a sodium of 122. He reports he is on beta histamine and hydrochlorothiazide as prescribed by his neurologist Dr. Rio Keen who he follows for his Mnire's disease. During my evaluation his symptoms had improved. He was Nauseated and was tolerating a diet. He was eval by surgery who did not recommend any surgical intervention. Patient reported to me that he is a full code. He does have a follow-up scheduled with his neurologist for steroid injections in his inner ear. - HOSPITAL COURSE Hospital Course: Patient is a 78-year-old male who presented to the ED after sustaining a fall at home due to an episode of vertigo. He does have a prior history of Mnire's di sease. In the ED he was noted to have facial ecchymosis as well as posterior 10th and 11th rib fractures. He was also found to have a sodium level 122. Patient was admitted and started on IV fluids. His sodium improved to 130 on discharge. It was noted that he had been placed on a thiazide for his Mnire's disease which I instructed him to hold upon discharge. General surgery also evaluated his rib fractures and recommended pain control. Patient was able to ambulate on his own and was subsequently discharged once his sodium corrected. He will follow-up with his neurologist regarding his Mnire's disease. - ALLERGIES Allergies/Adverse Reactions: Allergies Allergy/AdvReac Type Severity Reaction Status Date / Time No Known Drug Allergies Allergy Verified 11/02/23 06:29 - MEDICATIONS Home Medications: Ambulatory Orders Medication Instructions Recorded Confirmed Levothyroxine [Synthroid] See Rx Instructions .ROUTE .COMPLEX 02/05/16 02/06/16 Mirtazapine 45 mg PO QPM 02/05/16 11/02/23 Omeprazole [PriLOSEC] 20 mg PO BID 02/05/16 11/02/23 Sertraline [Zoloft] 12.5 mg PO DAILY 02/05/16 11/02/23 Betahistine 8 mg PO TID 11/02/23 11/02/23 Rosuvastatin Calcium [Crestor] 10 mg PO QPM 11/02/23 11/02/23 Tamsulosin [Flomax] 0.8 mg PO DAILY 11/02/23 11/02/23 - PHYSICAL EXAM AT DISCHARGE General Appearance: positive: No acute distress, Alert Eyes Bilateral: positive: Normal inspection, PERRL, EOMI Respiratory: positive: No respiratory distress, Breath sounds nml Cardiovascular: positive: Regular rate & rhythm, No murmur, No gallop Abdomen: positive: Non-tender Extremities: positive: Full ROM, Nml appearance, No pedal edema Neurologic/Psychiatric: positive: Oriented x3, CN's nml (2-12) - LABS Result Diagrams: 11/03/23 06:16 11/03/23 11:57 - FOLLOW UP Follow Up: Follow up with PCP in 3-5 days. - TIME SPENT Time Spent in Discharge (Minutes): 30
[2023-11-03 13:01] VITALS: BP 139/69; O2SAT 97
[2023-11-03] MEDS ORDERED: TAMSULOSIN 0.4 MG CAPSULE PO SCH (15:00)
== END 2023-11-03 14:05 | disposition home or self-care (01) | DRG 184 ==
LOC: EDUNIT# → ED 06:17 → MS2 09:03
PROVIDERS: ADMIT Family Medicine; ATTEND Family Medicine
DX: S22.41XA Multiple fractures of ribs, right side, initial encounter for closed fracture (principal); S00.31XA Abrasion of nose, initial encounter; S00.81XA Abrasion of other part of head, initial encounter; E87.1 Hypo-osmolality and hyponatremia; R42 Dizziness and giddiness; E03.9 Hypothyroidism, unspecified; I25.10 Atherosclerotic heart disease of native coronary artery without angina pectoris; S09.93XA Unspecified injury of face, initial encounter; W19.XXXA Unspecified fall, initial encounter; H81.09 Meniere's disease, unspecified ear; E78.00 Pure hypercholesterolemia, unspecified; N40.0 Benign prostatic hyperplasia without lower urinary tract symptoms; H91.90 Unspecified hearing loss, unspecified ear; F32.A Depression, unspecified; M19.90 Unspecified osteoarthritis, unspecified site; Y92.009 Unspecified place in unspecified non-institutional (private) residence as the place of occurrence of the external cause; Z79.899 Other long term (current) drug therapy; Z85.01 Personal history of malignant neoplasm of esophagus; Z85.46 Personal history of malignant neoplasm of prostate; Z92.3 Personal history of irradiation
CPT/HCPCS: 36415; 70450; 70486; 70496; 70498; 71260; 74177; 80048; 80053; 81003; 83690; 83935; 84295; 84300; 84443; 85025; 90471; 90715; 96374; 96375; 97116; 97161; 97165; 97530; 99284; 99285; A9270; J1170; J1650; J2060; Q9967; 81001; 87086

== ENCOUNTER 2023-11-08 08:05 | Outpatient (CLI) | payer MEDICARE, BC ==
[2023-11-08 15:44] LABS: CALCIUM 9.7 mg/dL (8.5-10.3); CREATININE 0.8 mg/dL (0.6-1.3); POTASSIUM 4.1 mmol/L (3.5-4.5)
== END 2023-11-08 08:06 | disposition home or self-care (01) ==
LOC: LAB.S 08:05
PROVIDERS: ATTEND Family Medicine
DX: E87.1 Hypo-osmolality and hyponatremia (principal)
CPT/HCPCS: 36415; 80048

== ENCOUNTER 2023-12-24 08:37 | Outpatient (CLI) | payer MEDICARE, BC ==
[2023-12-24 14:54] LABS: CHOL/HDL RATIO 2.8 (<5.0); CHOLESTEROL 171 mg/dL; HDL CHOLESTEROL 62 mg/dL; LDL CHOLESTEROL,CALCULATED 85 mg/dL; LDL/HDL RATIO 1.4 (<3.6); TRIGLYCERIDES 118 mg/dL (48-352); VLDL CHOLESTEROL 24 mg/dL
== END 2023-12-24 08:38 | disposition home or self-care (01) ==
LOC: LAB.S 08:37
PROVIDERS: ATTEND Internal Medicine Cardiovascular Disease
DX: E78.5 Hyperlipidemia, unspecified (principal)
CPT/HCPCS: 36415; 80061; 83721

== ENCOUNTER 2024-03-24 08:10 | Outpatient (CLI) | payer MEDICARE, BC ==
[2024-03-27 20:08] LABS: FREE TESTOSTERONE(DIRECT) 1.2 pg/mL (6.6-18.1)
== END 2024-03-24 08:11 | disposition home or self-care (01) ==
LOC: LAB.S 08:10
PROVIDERS: ATTEND Internal Medicine Endocrinology, Diabetes & Metabolism
DX: E29.1 Testicular hypofunction (principal)
CPT/HCPCS: 36415; 83001; 83002; 84402; 84403

== ENCOUNTER 2024-03-31 07:30 | Outpatient (CLI) | payer MEDICARE, BC ==
[2024-03-31 15:50] LABS: PROLACTIN 8.23 ng/mL
[2024-04-01 08:11] LABS: SEX HORM BINDING GLOB SERUM 74.2 nmol/L (19.3-76.4)
== END 2024-03-31 07:31 | disposition home or self-care (01) ==
LOC: LAB.S 07:30
PROVIDERS: ATTEND Internal Medicine Endocrinology, Diabetes & Metabolism
DX: E29.1 Testicular hypofunction (principal)
CPT/HCPCS: 36415; 83001; 83002; 84146; 84153; 84270; 84402; 84403; 85014